=== PATIENT | male | born 1975 | race Caucasian/White ===

== ENCOUNTER 2017-01-23 05:00 | Emergency (ER) | payer SELFPAY | END 2017-01-23 05:28 | disposition home or self-care (01) | LOC: ER 05:00 | DX: M62.830 Muscle spasm of back (principal); F17.210 Nicotine dependence, cigarettes, uncomplicated; Z88.0 Allergy status to penicillin | CPT/HCPCS: 96372; 99283; A9270-GY; J1040; J1170 ==

== ENCOUNTER 2017-01-27 01:16 | Emergency (ER) | payer SELFPAY | END 2017-01-27 02:35 | disposition home or self-care (01) | LOC: ER 01:16 | DX: M54.5 Low back pain (principal); G89.29 Other chronic pain; F17.200 Nicotine dependence, unspecified, uncomplicated; Z88.0 Allergy status to penicillin | CPT/HCPCS: 96372; 99284; J1885; J2360 ==